=== PATIENT | female | born 1995 | race Caucasian/White ===

== ENCOUNTER 2018-02-17 11:43 | Emergency (ER) | payer MEDICAID ==
[2018-02-17 11:51] VITALS: BP 118/76
--- NOTE | 2018-02-17 12:13 | ER Document Report ---
ED General - General Chief Complaint: Other Stated Complaint: LABS Time Seen by Provider: 02/17/18 12:08 Mode of Arrival: Ambulatory Information source: Patient Notes: Patient is a 22-year-old female who presents to the ER today for joint pain all over 9 months. Patient is convinced that she has Lyme disease because her dog has recently been diagnosed with Lyme disease. Patient denies any ticks on herself that she remembers but states "I have pulled lots of ticks off of him." Patient states that every single bone in her body pops all the time. When I ask her where it is worse she says "is equal all over." She is also concerned about gonorrhea and chlamydia today and wants a "full panel of blood work done. " TRAVEL OUTSIDE OF THE [place] IN LAST 30 DAYS: No - Related Data Allergies/Adverse Reactions: No Known Allergies Allergy (Verified 02/17/18 11:44) Past Medical History - General Information source: Patient - Social History Smoking Status: Never Smoker Chew tobacco use (# tins/day): No Frequency of alcohol use: None Drug Abuse: None Family History: Reviewed & Not Pertinent Patient has suicidal ideation: No Patient has homicidal ideation: No Renal/ Medical History: Denies: Hx Peritoneal Dialysis Review of Systems - Review of Systems Constitutional: No symptoms reported EENT: No symptoms reported Cardiovascular: No symptoms reported Respiratory: No symptoms reported Gastrointestinal: No symptoms reported Genitourinary: No symptoms reported Female Genitourinary: No symptoms reported Musculoskeletal: See HPI Skin: No symptoms reported Hematologic/Lymphatic: No symptoms reported Neurological/Psychological: No symptoms reported Physical Exam - Vital signs Vitals: Temp Pulse Resp BP Pulse Ox 98.2 F 62 14 118/76 100 02/17/18 11:49 02/17/18 11:49 02/17/18 11:49 02/17/18 11:49 02/17/18 11:49 - Notes Notes: PHYSICAL EXAMINATION: GENERAL: Tearful, in no acute distress. HEAD: Atraumatic, normocephalic. EYES: Pupils equal round and reactive to light, extraocular movements intact, sclera anicteric, conjunctiva are normal. ENT: ear canals without erythema or foreign body, TMs pearly mark with good bony landmarks, nares patent, oropharynx clear without exudates. Moist mucous membranes. NECK: Normal range of motion, supple without lymphadenopathy LUNGS: CTAB and equal. No wheezes rales or rhonchi. HEART: Regular rate and rhythm without murmurs ABDOMEN: Soft, no tenderness. No guarding, no rebound BACK: no vertebral tenderness, normal ROM GI/: no CVA tenderness EXTREMITIES: Normal range of motion, no pitting edema. No cyanosis. NEUROLOGICAL: Cranial nerves grossly intact. Normal sensory/motor exams. PSYCH: Normal mood, normal affect. SKIN: Warm, Dry, normal turgor, no rashes or lesions noted Course - Re-evaluation Re-evalutation: 02/17/18 12:11 CBC, RPR for syphilis, Lyme disease, gonorrhea and chlamydia all pending at this time. Patient looks well with normal vital signs. - Vital Signs Vital signs: Temp Pulse Resp BP Pulse Ox 98.2 F 62 14 118/76 100 02/17/18 11:49 02/17/18 11:49 02/17/18 11:49 02/17/18 11:49 02/17/18 11:49 - Laboratory Result Diagrams: 02/17/18 12:15 Laboratory results interpreted by me: 02/17/18 12:15 RDW 14.1 H Eosinophils % 6.7 H Discharge - Discharge Clinical Impression: Joint pain Qualifiers: Joint pain location: unspecified Qualified Code(s): M25.50 - Pain in unspecified joint Condition: Stable Disposition: HOME, SELF-CARE Additional Instructions: We will call you with the results for Lyme disease, syphilis, gonorrhea, chlamydia and your other lab work today. Return immediately for any new or worsening symptoms. Follow up with primary care provider, call tomorrow to make followup appointment.
[2018-02-17 12:39] LABS: ABSOLUTE BASOPHILS # (AUTO) 0.1 10^3/uL (0.0-0.2); ABSOLUTE EOSINOPHILS # (AUTO) 0.4 10^3/uL (0.0-0.6); ABSOLUTE MONOCYTES (AUTO) 0.4 10^3/uL (0.1-1.4); ABSOLUTE NEUT (AUTO) 3.8 10^3/uL (1.7-8.2); BASOPHILS % (AUTO) 1.2 % (0-2); EOSINOPHILS % (AUTO) 6.7 % (0-6); HEMATOCRIT 43.7 % (36.0-47.0); HEMOGLOBIN 14.4 g/dL (12.0-15.5); LYMPHOCYTES % (AUTO) 29.8 % (13-45); MEAN CORPUSCULAR HEMOGLOBIN 29.1 pg (27.0-33.4); MEAN CORPUSCULAR HGB CONC 32.9 g/dL (32.0-36.0); MEAN CORPUSCULAR VOLUME 88 fl (80-97); MONOCYTES % (AUTO) 6.4 % (3-13); PLATELET COUNT 264 10^3/uL (150-450); RED BLOOD COUNT 4.95 10^6/uL (3.72-5.28); RED CELL DISTRIBUTION WIDTH 14.1 % (11.5-14.0); SEGMENTED NEUTROPHILS % (AUTO) 55.9 % (42-78); TOTAL CELLS COUNTED % (AUTO) 100 %; WHITE BLOOD COUNT 6.7 10^3/uL (4.0-10.5)
[2018-02-17 14:28] LABS: CHLAM PCR NOT DETECTED (NOT DETECT); GON PCR NOT DETECTED (NOT DETECT)
[2018-02-18 15:31] LABS: LYME DISEASE IGM AB <0.80 index (0.00-0.79)
== END 2018-02-17 12:45 | disposition home or self-care (01) ==
LOC: ER 11:43
DX: M25.50 Pain in unspecified joint (principal); Z20.89 Contact with and (suspected) exposure to other communicable diseases; Z11.3 Encounter for screening for infections with a predominantly sexual mode of transmission
CPT/HCPCS: 36415; 85025; 86592; 86617; 86618; 87491; 87591; 99283

== ENCOUNTER 2018-11-19 15:30 | Emergency (ER) | payer MEDICAID ==
[2018-11-19] MEDS ORDERED: SUCRALFATE SUSP 1 GM/10 ML UDCUP PO ONE (17:38)
--- NOTE | 2018-11-19 17:44 | ER Document Report ---
ED Medical Screen (RME) - General Chief Complaint: Abdominal Pain Stated Complaint: ABDOMINAL PAIN Time Seen by Provider: 11/19/18 16:26 Mode of Arrival: Ambulatory Information source: Patient TRAVEL OUTSIDE OF THE [place] IN LAST 30 DAYS: No - HPI Patient complains to provider of: Abdominal pain Onset: Other - This 23-year-old otherwise healthy female presents for evaluation of abdominal pain yesterday which caused her 3 times to drop to the ground and force herself to vomit and attempt to obtain relief. She notes that she has no medical problems is never had any surgeries in the past. She did not try to eat anything today or drink anything today because she was concerned it may re- exacerbate the pain. She is not taking any medicines to try and help. She is never had anything like this in the past. - Related Data Allergies/Adverse Reactions: No Known Allergies Allergy (Verified 11/19/18 15:31) Past Medical History - General Information source: Patient - Social History Frequency of alcohol use: Rare Drug Abuse: None Renal/ Medical History: Denies: Hx Peritoneal Dialysis Review of Systems - Review of Systems -: Yes All other systems reviewed and negative Physical Exam - Vital signs Vitals: Temp Pulse Resp BP Pulse Ox 98.2 F 86 14 128/79 H 99 11/19/18 15:34 11/19/18 15:34 11/19/18 15:34 11/19/18 15:34 11/19/18 15:34 Interpretation: Normal - General General appearance: Appears well, Alert - HEENT Head: Normocephalic, Atraumatic Eyes: Normal Pupils: PERRL - Respiratory Respiratory status: No respiratory distress Chest status: Nontender Breath sounds: Normal Chest palpation: Normal - Cardiovascular Rhythm: Regular Heart sounds: Normal auscultation Murmur: No - Abdominal Inspection: Normal Distension: No distension Bowel sounds: Normal Tenderness: Nontender Organomegaly: No organomegaly - Back Back: Normal, Nontender - Extremities General upper extremity: Normal inspection, Nontender, Normal color, Normal ROM, Normal temperature General lower extremity: Normal inspection, Nontender, Normal color, Normal ROM, Normal temperature, Normal weight bearing. No: Haritha's sign - Neurological Neuro grossly intact: Yes Cognition: Normal Orientation: AAOx4 Girard Coma Scale Eye Opening: Spontaneous Vanessa Coma Scale Verbal: Oriented Girard Coma Scale Motor: Obeys Commands Vanessa Coma Scale Total: 15 Speech: Normal Motor strength normal: LUE, RUE, LLE, RLE Sensory: Normal - Psychological Associated symptoms: Normal affect, Normal mood - Skin Skin Temperature: Warm Skin Moisture: Dry Skin Color: Normal Course - Re-evaluation Re-evalutation: 11/19/18 20:27 23-year-old female that presents for abdominal pain. Her abdomen is soft, nontender, she has no pain at this time. She becomes tearful throughout the exam she states that she wishes she would have just tried to eat something earlier today. I told her that she may have gastritis or an ulcer having taken an ibuprofen the day before on an empty stomach. I offered blood tests, imaging, and symptom control. She states that she thinks that I am right that she likely has an ulcer or gastritis and she has no desire to pursue testing at this time. She would prefer to have blood prescription to try and help with this if I think that is the case. Patient was given a p.o. challenge in the emergency department was able to eat solid foods as well as liquids. Her abdominal examination remained benign throughout this time. She was discharged with return precautions and expectant management with a prescription for sucralfate as well as omeprazole. - Vital Signs Vital signs: Temp Pulse Resp BP Pulse Ox 98.2 F 86 17 130/71 H 100 11/19/18 15:34 11/19/18 17:53 11/19/18 17:53 11/19/18 17:53 11/19/18 17:53 Doctor's Discharge - Discharge Clinical Impression: Gastritis Qualifiers: Gastritis type: unspecified gastritis Chronicity: unspecified Gastritis bleeding: without bleeding Qualified Code(s): K29.70 - Gastritis, unspecified, without bleeding Abdominal pain Qualifiers: Abdominal location: unspecified location Qualified Code(s): R10.9 - Unspecified abdominal pain Condition: Good Disposition: HOME, SELF-CARE Instructions: Abdominal Pain ([facility]), Gastritis ([facility]) Additional Instructions: You were seen today in the emergency department for your abdominal pain. You had evaluation including a physical exam. I think that she likely have gastritis. It is possible you have an ulcer. Both of these will be treated the same way. You have been given a medicine to help with the pain called sucralfate, take it as directed on the bottle. Start taking omeprazole which is an acid blocking pill twice a day. Be gentle on her stomach, eat bland food for the next day. If you have worsening pain fevers or chills or cannot eat you can always come back to the emergency room because it could be a more serious condition and we can do more testing. Prescriptions: Omeprazole 20 mg PO BID 15 Days #30 capsule. Sucralfate [Carafate] 1 gm PO TID 15 Days #60 oral.susp
[2018-11-19 17:55] VITALS: BP 130/71
== END 2018-11-19 17:55 | disposition home or self-care (01) ==
LOC: ER 15:30
DX: K29.70 Gastritis, unspecified, without bleeding (principal); R10.9 Unspecified abdominal pain
CPT/HCPCS: 99283; J3490

== ENCOUNTER 2019-08-06 21:58 | Emergency (ER) | payer SELFPAY ==
[2019-08-06 22:21] VITALS: BP 134/87
--- NOTE | 2019-08-06 22:25 | ER Document Report ---
ED Medical Screen (RME) - General Chief Complaint: Psych Problem Stated Complaint: PSYCH PROBLEM Time Seen by Provider: 08/06/19 22:13 Mode of Arrival: Ambulatory Information source: Patient Notes: 24-year-old female presents with concerns that she may have inhaled a toxic gas 1 week ago that made her have a psychotic break and landed her in a mental facility for a week in [place]. She is here to be tested for this gas. She denies past medical history of anything. Patient reports she is educated female and believes that the gas affected her emotions. \ I have greeted and performed a rapid initial assessment of this patient. A comprehensive ED assessment and evaluation of the patient, analysis of test results and completion of the medical decision making process will be conducted by additional ED providers. Dictation of this chart was performed using voice recognition software; therefore, there may be some unintended grammatical errors. TRAVEL OUTSIDE OF THE [place] IN LAST 30 DAYS: No - Related Data Allergies/Adverse Reactions: No Known Allergies Allergy (Verified 11/19/18 15:31) Past Medical History - Social History Chew tobacco use (# tins/day): No Frequency of alcohol use: None Drug Abuse: None Renal/ Medical History: Denies: Hx Peritoneal Dialysis Physical Exam - Vital signs Vitals: Temp Pulse BP Pulse Ox 98.1 F 89 134/87 H 99 08/06/19 22:16 08/06/19 22:16 08/06/19 22:16 08/06/19 22:16 Course - Vital Signs Vital signs: Temp Pulse Resp BP Pulse Ox 98.1 F 89 134/87 H 99 08/06/19 22:16 08/06/19 22:16 08/06/19 22:16 08/06/19 22:16
--- NOTE | 2019-08-06 22:37 | EKG REPORT ---
SEVERITY:- NORMAL ECG - SINUS RHYTHM : Confirmed by: Paulino Javed MD 06-Aug-2019 22:37:42
== END 2019-08-06 22:38 | disposition left against medical advice (07) ==
LOC: ER 21:58
DX: Z77.098 Contact with and (suspected) exposure to other hazardous, chiefly nonmedicinal, chemicals (principal); Z53.20 Procedure and treatment not carried out because of patient's decision for unspecified reasons
CPT/HCPCS: 93005; 93010; 99281